=== PATIENT | male | born 1985 | race Caucasian/White ===

== ENCOUNTER 2018-11-15 01:26 | Emergency (ER) | payer OTHER ==
[~2018-11-15] VITALS: Ht 175.3 cm; Wt 72.6 kg
[2018-11-15 01:44] VITALS: BP 152/82
[2018-11-15] MEDS ORDERED: BACTRIM DS TAB1 EACH PO (01:46)
== END 2018-11-15 02:10 | disposition home or self-care (01) ==
LOC: ER 01:26
DX: L03.113 Cellulitis of right upper limb (principal)

== ENCOUNTER 2018-11-17 02:43 | Emergency (ER) | payer OTHER ==
[~2018-11-17] VITALS: Ht 175.3 cm; Wt 72.6 kg
[~2018-11-17 02:43] MED LIST: BACTRIM DS TAB1 EACH PO
[2018-11-17 02:54] VITALS: BP 147/81
[2018-11-17] MEDS ORDERED: BACTRIM DS TAB1 EACH PO (03:11)
[2018-11-17] MEDS ORDERED: IBUPROFEN 400400 M2 PO (03:11)
== END 2018-11-17 03:25 | disposition home or self-care (01) ==
LOC: ER 02:43
DX: L03.113 Cellulitis of right upper limb (principal)